=== PATIENT | female | born 1945 ===

== ENCOUNTER 2017-08-23 08:30 | Inpatient (IN) | payer OTHER ==
[~2017-08-23] VITALS: Ht 165.1 cm; Wt 99.8 kg
[2017-08-24] MEDS ORDERED: HYZAAR 100-251 EACH PO (10:42)
[2017-08-24] MEDS ORDERED: SYNTH PO (10:43)
[2017-08-24] MEDS ORDERED: PROVASTATIN PO (10:44)
[2017-08-24] MEDS ORDERED: TENORMIN100 M1 PO (10:44)
[2017-08-24] MEDS ORDERED: GABAPENTIN100 MG PO (10:45)
[2017-08-24] MEDS ORDERED: NORVASC5 MG PO (10:45)
[2017-08-24] MEDS ORDERED: HUMULIN 70100 UNIT/2 (10:46)
[2017-08-24] MEDS ORDERED: LOVENOX (11:02)
[2017-08-24] MEDS ORDERED: GLIPIZIDE5 MG PO (16:48)
[2017-08-24] MEDS ORDERED: SYNTHROID300 MCG PO (16:48)
[2017-08-24] MEDS ORDERED: METFORMIN HCL1000 MG PO (16:48)
== END 2017-09-02 19:04 | DRG 470 ==
LOC: ADM 08:30 → EDSTATUS 08-24 12:15 → ADM 08-24 12:15 → SURG 08-30 07:00 → SURH 08-30 07:36 → O/R 08-30 07:36 → SURG 08-30 12:15 → SURH 08-30 16:07
PROVIDERS: Orthopaedic Surgery
PROC: 0SRC0J9 Replacement of Right Knee Joint with Synthetic Substitute, Cemented, Open Approach (ICD-10-PCS; principal; 2017-08-30 07:00)
DX: M17.11 Unilateral primary osteoarthritis, right knee (principal); D62 Acute posthemorrhagic anemia; E11.9 Type 2 diabetes mellitus without complications; E03.8 Other specified hypothyroidism; I11.9 Hypertensive heart disease without heart failure; I25.10 Atherosclerotic heart disease of native coronary artery without angina pectoris; Z95.1 Presence of aortocoronary bypass graft

== ENCOUNTER 2017-08-24 16:23 | Emergency (ER) | payer OTHER ==
[~2017-08-24] VITALS: Ht 165.1 cm; Wt 99.8 kg
[~2017-08-24 16:23] MED LIST: GABAPENTIN100 MG PO; HUMULIN 70100 UNIT/2; HYZAAR 100-251 EACH PO; LOVENOX; NORVASC5 MG PO; PROVASTATIN PO; SYNTH PO; TENORMIN100 M1 PO
[2017-08-24] MEDS ORDERED: GLIPIZIDE5 MG PO (16:48)
[2017-08-24] MEDS ORDERED: SYNTHROID300 MCG PO (16:48)
[2017-08-24] MEDS ORDERED: METFORMIN HCL1000 MG PO (16:48)
== END 2017-08-24 19:59 | disposition home or self-care (01) ==
LOC: ER 16:23
DX: S20.212A Contusion of left front wall of thorax, initial encounter (principal); S80.02XA Contusion of left knee, initial encounter; S50.02XA Contusion of left elbow, initial encounter; W18.09XA Striking against other object with subsequent fall, initial encounter; Y93.89 Activity, other specified; Y92.59 Other trade areas as the place of occurrence of the external cause; Y99.8 Other external cause status